=== PATIENT | female | born 1980 ===

== ENCOUNTER 2022-09-10 08:02 | Outpatient (CLI) | payer OTHER | END 2022-09-10 08:16 | disposition home or self-care (01) | LOC: NUCLEAR 08:02 | DX: E05.90 Thyrotoxicosis, unspecified without thyrotoxic crisis or storm (principal) | CPT/HCPCS: 78014; A9528 ==

== ENCOUNTER 2022-09-11 07:25 | Outpatient (CLI) | payer OTHER | END 2022-09-11 07:28 | disposition home or self-care (01) | LOC: NUCLEAR 07:25 | DX: E05.90 Thyrotoxicosis, unspecified without thyrotoxic crisis or storm (principal) | CPT/HCPCS: 78014; A9528 ==